=== PATIENT | male | born 1940 | race Caucasian/White ===

== ENCOUNTER 2018-06-30 14:37 | Emergency (ER) | payer OTHER, BC ==
[2018-06-30] MEDS ORDERED: IPRATROPIUM/ALBUTEROL 3 ML DEYVIAL IH ONE (15:55)
[2018-06-30] MEDS ORDERED: ALBUTEROL 3 ML DEYVIAL IH ONE ×2 (15:55→17:31)
--- NOTE | 2018-06-30 16:05 | EDPHY ---
H & P Stated Complaint: shortness of breath Time Seen by Provider: 06/30/18 15:31 HPI/ROS: CHIEF COMPLAINT: Shortness of breath HISTORY OF PRESENT ILLNESS: This is a 78-year-old gentleman who is visiting here from [facility]. He actually initially flu to the [place] area and then drove to [place]. He was up in [place] for about the last week. While he was in [place] he developed shortness of breath, headache, and some nausea. He was evaluated at a hospital in [facility] being documented to have saturations of 74% on room air. At that time the patient had a negative D-dimer, negative troponin, negative influenza. He remained in the [place] area with supplemental oxygen until yesterday when he drove down with his family from [place]. After arriving in [place] the patient continues to complain of feeling somewhat short of breath and has developed a wet cough. Patient was instructed to use a albuterol meter dose inhaler while he was in [facility]. He has had no fevers or chills. No significant chest pain. No palpitations, vomiting, diarrhea, urinary complaints, headache or lightheadedness. REVIEW OF SYSTEMS: A comprehensive 10 system review of systems was reviewed and is otherwise negative aside from elements mentioned in the history of present illness and medical decision making. PAST MEDICAL HISTORY: Hypertension, enlarged prostate. SOCIAL HISTORY: Here with his family members. VITAL SIGNS Reviewed by me. 92% on room air. GENERAL: Well-developed, well-nourished, occasional wet sounding cough. HEENT: Atraumatic. Eyes: No icterus, no injection. Mouth: moist mucous membranes. No erythema or lesions. Neck: supple with no adenopathy. LUNGS: Faint crackles and wheezes throughout. CARDIAC: Regular rate and rhythm, no rubs, murmurs or gallops. ABDOMEN: Soft, nontender, nondistended, bowel sounds normal. BACK: No CVA tenderness. EXTREMITIES: No trauma. No edema. Range of motion is normal throughout. NEURO: Alert and oriented, grossly nonfocal. SKIN: Warm and dry, no rash. PSYCHIATRIC: Normal mentation, no agitation. - Personal History Current Tetanus Diphtheria and Acellular Pertussis (TDAP): Yes - Medical/Surgical History Hx Asthma: No Hx Chronic Respiratory Disease: No Hx Diabetes: No Hx Cardiac Disease: No Hx Renal Disease: No Hx Cirrhosis: No Hx Alcoholism: No Hx HIV/AIDS: No Hx Splenectomy or Spleen Trauma: No Other PMH: HTN , High Cholesterol, Enlarged prostate - Social History Smoking Status: Never smoked Constitutional: Initial Vital Signs Temperature (C) 36.8 C 06/30/18 14:42 Heart Rate 68 06/30/18 14:42 Respiratory Rate 16 06/30/18 14:42 Blood Pressure 184/96 H 06/30/18 14:42 O2 Sat (%) 92 06/30/18 14:42 O2 Delivery Mode Room Air Allergies/Adverse Reactions: No Known Allergies Allergy (Unverified 06/30/18 15:34) Home Medications: Medication Instructions Recorded Albuterol [Proventil Inhaler HFA 1 - 2 puffs IH Q4H #1 mdi 06/30/18 (*)] Alfuzosin HCl 06/30/18 Benzonatate [Tessalon Pearles (RX)] 100 mg PO TID PRN #20 cap 06/30/18 Carvedilol 06/30/18 Donepezil HCl Odt 06/30/18 Doxycycline Hyclate 100 mg PO BID #14 tablet 06/30/18 Finasteride 06/30/18 Pravastatin Sodium 06/30/18 Ramipril 06/30/18 buPROPion 06/30/18 predniSONE [prednisone 10mg (RX)] 40 mg PO DAILY 3 Days tab 06/30/18 Medical Decision Making - Diagnostics EKG Interpretation: 12-LEAD EKG: Please see the full report in [facility]. My interpretation: Sinus rhythm Imaging Results: CXR: Impression: Mild peribronchial thickening which can be seen with airways disease /bronchitis or mild fluid overload. Dictated By: Lg Ramirez MD ED Course/Re-evaluation: 78-year-old male with hypoxia at altitude and complaints of shortness of breath now presenting with ongoing cough and some shortness of breath. Laboratory evaluation is largely unremarkable. Patient did have a D-dimer of 0.51 which is normal using age adjusted cut off. He also is noted to have a negative D-dimer from several days ago in the [facility]. Chest x-ray indicates airways disease/ bronchitis. Patient received DuoNeb and 2 nebs while in the emergency department. This seemed to improve his symptoms significantly. He was treated with Solu-Medrol was discharged with a prescription for prednisone. Given his ongoing complaints of cough and shortness of breath, patient was given prescription of doxycycline. Respiratory pathogen panel is pending at this time. Sepsis Evaluation Note: The patient presents to the ED with potential infection identified as pneumonia. The patient did not have evidence of sepsis and he did not have temperature greater than 38 degree Celsius, heart rate greater than 90, respiratory rate greater than 20, or WBC greater than 12,000. Differential Diagnosis: Differential diagnosis for the patient's cough was considered including but not limited to viral versus bacterial bronchitis, asthma, COPD, pulmonary emboli, upper respiratory infection, lower respiratory infection, and bronchospasm. - Data Points Laboratory Results: Laboratory Results 06/30/18 16:14 06/30/18 16:14 Medications Given: Discontinued Medications Albuterol (Proventil Neb) 3 ml IH EDNOW ONE Stop: 06/30/18 15:56 Last Admin: 06/30/18 16:39 Dose: 3 ml Albuterol (Proventil Neb) 3 ml IH EDNOW ONE Stop: 06/30/18 17:32 Last Admin: 06/30/18 18:03 Dose: 3 ml Albuterol/Ipratropium (Duoneb) 3 ml IH EDNOW ONE Stop: 06/30/18 15:56 Last Admin: 06/30/18 16:39 Dose: 3 ml Doxycycline Hyclate (Doxycycline Hyclate) 100 mg PO EDNOW ONE PRN Reason: Protocol Stop: 06/30/18 17:19 Last Admin: 06/30/18 18:01 Dose: 100 mg Methylprednisolone Sodium Succinate (Solu-Medrol) 125 mg IVP EDNOW ONE Stop: 06/30/18 16:46 Last Admin: 06/30/18 16:52 Dose: 125 mg Point of Care Test Results: Chemistry 06/30/18 16:17 POC Troponin I 0.00 ng/mL ng/mL (0.00-0.08) Departure - Departure Disposition: Home, Routine, Self-Care Clinical Impression: Acute bronchitis Qualifiers: Bronchitis organism: unspecified organism Qualified Code(s): J20.9 - Acute bronchitis, unspecified Mild reactive airways disease Qualifiers: Asthma persistence: unspecified Qualified Code(s): J45.909 - Unspecified asthma , uncomplicated Condition: Good Instructions: Acute Bronchitis (ED), How to Use a Nebulizer (ED), Bronchospasm (ED) Additional Instructions: Please use the metered dose inhaler to help control your coughing and shortness of breath. You been given a prescription of prednisone. Please take this as directed for the next 3 days starting tomorrow. You been given a prescription of doxycycline, this is an antibiotic. Please begin taking this as directed. You been given a prescription for Tessalon Perles. This is a cough suppressant. I also recommend Mucinex. This is available [id number]. It may thin the secretions and allow your cough to be more productive. Please follow up with your primary care physician when you return to [place]. Seek care urgently or follow up at the emergency department if you develop a fever, worsening symptoms despite the above treatment, shortness of breath, chest pain, vomiting, or other concerns. Referrals: LEONEL,DOCTOR [Other] - As per Instructions Prescriptions: Albuterol [Proventil Inhaler HFA (*)] 1 - 2 puffs IH Q4H #1 mdi Benzonatate [Tessalon Pearles (RX)] 100 mg PO TID PRN #20 cap PRN Reason: Cough Doxycycline Hyclate 100 mg PO BID #14 tablet predniSONE [prednisone 10mg (RX)] 40 mg PO DAILY 3 Days tab
[2018-06-30 16:25] LABS: PLATELET COUNT 284 10^3/uL (150-400)
[2018-06-30] MEDS ORDERED: methylPREDNISolone SOD SUCC 125 MG/2 ML VIAL IVP ONE (16:45)
[2018-06-30] MEDS ORDERED: DOXYCYCLINE HYCLATE 100 MG CAP/TAB PO ONE (17:18)
[2018-06-30 18:22] VITALS: BP 166/97
--- NOTE | 2018-07-01 15:36 | CPEKG ---
Test Reason : OPEN Blood Pressure : / mmHG Vent. Rate : 063 BPM Atrial Rate : 063 BPM P-R Int : 164 ms QRS Dur : 091 ms QT Int : 550 ms P-R-T Axes : 042 011 -20 degrees QTc Int : 564 ms Sinus rhythm Low voltage, extremity leads Prolonged QT interval Confirmed by Carla Tanner ([id number]) on 07/01/2018 3:36:23 PM Referred By: Carla Tanner Confirmed By:Carla Tanner
== END 2018-06-30 18:22 | disposition home or self-care (01) ==
DX: J20.9 Acute bronchitis, unspecified (principal); J45.909 Unspecified asthma, uncomplicated; I10 Essential (primary) hypertension
CPT/HCPCS: 71046; 93005; 96374; 99285; J2930; J7613; 84484-ER